=== PATIENT | male | born 1960 | race Caucasian/White ===

== ENCOUNTER 2022-12-07 05:31 | Outpatient (CLI) | payer OTHER ==
[~2022-12-07] VITALS: Ht 185.5 cm; Wt 88.6 kg
[2022-12-10] MEDS ORDERED: ASCO-262 PO (14:35)
[2022-12-10] MEDS ORDERED: CHOL500050 PO (14:35)
[2022-12-10] MEDS ORDERED: DULO60CA7 PO (14:35)
[2022-12-10] MEDS ORDERED: OMEP20TA33 PO (14:35)
== END 2022-12-10 15:00 | disposition home or self-care (01) ==
LOC: PREOP 05:31
PROVIDERS: ATTEND Otolaryngology Otolaryngology/Facial Plastic Surgery
DX: Z01.818 Encounter for other preprocedural examination (principal)

== ENCOUNTER 2022-12-20 06:21 | Day surgery (SDC) | payer OTHER ==
[~2022-12-20] VITALS: Ht 185.5 cm; Wt 88.6 kg
[2022-12-20] VITALS (11 sets, daily range): BP systolic 105–132; BP diastolic 66–79
[~2022-12-20 06:21] MED LIST: ASCO-262 PO; CHOL500050 PO; DULO60CA7 PO; OMEP20TA33 PO
[2022-12-20] MEDS ORDERED: LACTATED RINGERS 1,000 ML 1,000 ML IV PRN (06:45)
[2022-12-20 07:06] LABS: BASOPHILS # (AUTO) 0.1 10^3/uL (0.0-0.1); BASOPHILS % (AUTO) 1 % (0-10); EOSINOPHILS # (AUTO) 0.6 10^3/uL (0.0-0.3); EOSINOPHILS % (AUTO) 9 % (0-10); HEMATOCRIT 42 % (40-54); HEMOGLOBIN 14.8 g/dL (13.3-17.7); LYMPHOCYTES # (AUTO) 2.3 10^3/uL (1.0-4.0); LYMPHOCYTES % (AUTO) 36 % (12-44); MEAN CORPUSCULAR HEMOGLOBIN 34 pg (25-34); MEAN CORPUSCULAR HGB CONC 35 g/dL (32-36); MEAN CORPUSCULAR VOLUME 97 fL (80-99); MONOCYTES # (AUTO) 0.6 10^3/uL (0.0-1.0); MONOCYTES % (AUTO) 8 % (0-12); NEUTROPHILS % (AUTO) 46 % (42-75); PLATELET COUNT 243 10^3/uL (130-400); WHITE BLOOD COUNT 6.6 10^3/uL (4.3-11.0)
[2022-12-20] MEDS ORDERED: MIDAZOLAM INJ 2 MG/2 ML VIAL ONE (07:22)
[2022-12-20] MEDS ORDERED: dexAMETHasone INJ 10 MG/ML 1 ML VIAL ONE (07:22)
[2022-12-20] MEDS ORDERED: SEVOFLURANE (ULTANE) 15 ML INHAL SOLN ONE ×2 (07:22→07:54)
[2022-12-20] MEDS ORDERED: fentaNYL INJECTION 100 MCG/2 ML VIAL ONE (07:22)
[2022-12-20] MEDS ORDERED: SUCCINYLCHOLINE INJ 20 MG/1 ML 10 ML VIAL ONE (07:22)
[2022-12-20] MEDS ORDERED: ONDANSETRON INJECTION 4 MG/2 ML (SDV) ONE (07:22)
[2022-12-20] MEDS ORDERED: proPOfol INJECTION 200 MG/20 ML VIAL IV ONE (07:22)
[2022-12-20] MEDS ORDERED: LIDOCAINE PF 2% 5 ML VIAL ONE (07:22)
[2022-12-20 07:31] LABS: CALCIUM 8.5 MG/DL (8.5-10.1); CREATININE SERUM 1.07 MG/DL (0.60-1.30); POTASSIUM 4.2 MMOL/L (3.6-5.0)
--- NOTE | 2022-12-20 07:36 | Progress Note-Pre Operative ---
Pre-Operative Progress Note Date of Available H&P: Dec 20, 2022 Date H&P Reviewed: Dec 20, 2022 Time H&P Reviewed: 06:30 History & Physical: H&P Reviewed, Patient Examed, No changes noted Changes from last HP none Pre-Operative Diagnosis: Right Vocal cord Lesion BAKARI LU MD Dec 20, 2022 07:36
--- NOTE | 2022-12-20 07:37 | Progress Note-Post Operative ---
Post-Operative Progess Note Surgeon (s)/Sole Edge Inker Machine (s) Surgeon BAKARI LU MD Sole Edge Inker Machine n/a Pre-Operative Diagnosis Right Vocal cord Lesion Post-Operative Diagnosis same Post-Op Procedure Note Date of Procedure: Dec 20, 2022 Name of Procedure Performed: Direct Laryngoscopy with Removal of Right Vocal Cord Lesion Description & Findings Description and Findings: n/a Anesthesia Type get Estimated Blood Loss minimal Packing none. Specimen(s) collected/removed right vocal cord lesion to pathology BAKARI LU MD Dec 20, 2022 07:37
[2022-12-20] MEDS ORDERED: HYDROcodone/ACETAMINOPHEN 5 MG/325 MG TABLET PO PRN (07:45)
[2022-12-20] MEDS ORDERED: PROMETHAZINE INJ 25 MG/ML VIAL IV PRN (07:45)
[2022-12-20] MEDS ORDERED: ONDANSETRON INJECTION 4 MG/2 ML (SDV) IVP PRN (08:15)
[2022-12-20] MEDS ORDERED: morphine INJ 10 MG/ML 1ML (SYR OR VIAL) IVP ONE (08:15)
[2022-12-20] MEDS ORDERED: fentaNYL INJECTION 100 MCG/2 ML VIAL IVP ONE (08:15)
[2022-12-20] MEDS ORDERED: MEPERIDINE INJ 50 MG/ML VIAL IVP ONE (08:15)
--- NOTE | 2022-12-20 08:16 | Anesthesia-General Post-Op ---
General Patient Condition Mental Status/LOC: Same as Preop Cardiovascular: Satisfactory Nausea/Vomiting: Absent Respiratory: Satisfactory Pain: Controlled Complications: Absent Post Op Complications Complications None Follow Up Care/Instructions Patient Instructions None needed. Anesthesia/Patient Condition Patient Condition Patient is doing well, no complaints, stable vital signs, no apparent adverse anesthesia problems. No complications reported per nursing. CASSY LOCKWOOD CRNA Dec 20, 2022 08:16
[2022-12-20] MEDS ORDERED: ACHD5005 PO (09:28)
== END 2022-12-20 10:12 | disposition home or self-care (01) ==
LOC: SDC 06:21
PROVIDERS: ATTEND Otolaryngology Otolaryngology/Facial Plastic Surgery
DX: J38.3 Other diseases of vocal cords (principal); K21.9 Gastro-esophageal reflux disease without esophagitis; Z28.310 Unvaccinated for COVID-19; Z79.899 Other long term (current) drug therapy
CPT/HCPCS: 36415; 80048; 85025; 87081; 93005